=== PATIENT | male | born 1980 | race Caucasian/White ===

== ENCOUNTER 2019-04-12 02:08 | Emergency (ER) | payer OTHER ==
[2019-04-12] MEDS ORDERED: ASPIRIN 81 MG TABLET, CHEWABLE PO ONE (04:01)
[2019-04-12 04:29] LABS: ABSOLUTE BASOPHILS # (AUTO) 0.1 10^3/uL (0.0-0.2); ABSOLUTE EOSINOPHILS # (AUTO) 0.5 10^3/uL (0.0-0.6); ABSOLUTE LYMPHOCYTES (AUTO) 2.4 10^3/uL (0.5-4.7); ABSOLUTE MONOCYTES (AUTO) 0.8 10^3/uL (0.1-1.4); ABSOLUTE NEUT (AUTO) 4.2 10^3/uL (1.7-8.2); BASOPHILS % (AUTO) 1.1 % (0-2); EOSINOPHILS % (AUTO) 6.5 % (0-6); HEMATOCRIT 40.7 % (37.9-51.0); HEMOGLOBIN 13.9 g/dL (13.5-17.0); LYMPHOCYTES % (AUTO) 29.8 % (13-45); MEAN CORPUSCULAR HEMOGLOBIN 29.8 pg (27.0-33.4); MEAN CORPUSCULAR HGB CONC 34.1 g/dL (32.0-36.0); MEAN CORPUSCULAR VOLUME 87 fl (80-97); MONOCYTES % (AUTO) 9.9 % (3-13); PLATELET COUNT 247 10^3/uL (150-450); RED BLOOD COUNT 4.66 10^6/uL (4.35-5.55); RED CELL DISTRIBUTION WIDTH 13.3 % (11.5-14.0); SEGMENTED NEUTROPHILS % (AUTO) 52.7 % (42-78); TOTAL CELLS COUNTED % (AUTO) 100 %
[2019-04-12] MEDS ORDERED: KETOROLAC TROMETHAMINE INJ/PF 30 MG/1 ML SDV IV ONE (04:31)
--- NOTE | 2019-04-12 04:31 | ER Document Report ---
ED General - General Chief Complaint: Chest Pain Stated Complaint: CHEST PAIN Time Seen by Provider: 04/12/19 04:18 TRAVEL OUTSIDE OF THE [place] IN LAST 30 DAYS: No - HPI Notes: 38-year-old male presents with chest pain. Patient describes onset over the last week several days gradually of sharp somewhat pleuritic left anterolateral chest pain that other times is more achy in both sides of his chest. No change in his underlying workout regimen. No direct injury. No fever, chills or sweats. No history or family history of venous thrombi embolism. No family history of primary relatives with early ACS. No use of cocaine. Moderate intensity, gradual onset, nonradiating. Constant, unrelenting for at least 24 hours. - Related Data Allergies/Adverse Reactions: No Known Allergies Allergy (Verified 04/12/19 02:27) Past Medical History - Social History Smoking Status: Never Smoker Frequency of alcohol use: Social Family History: Reviewed & Not Pertinent Patient has suicidal ideation: No Patient has homicidal ideation: No - Medical History Medical History: Negative Review of Systems - Review of Systems Notes: Review of systems as in the history of present illness, otherwise negative x 10 systems. Physical Exam - Vital signs Vitals: Temp Pulse Resp BP Pulse Ox 97.9 F 67 18 143/80 H 100 04/12/19 02:20 04/12/19 02:20 04/12/19 02:20 04/12/19 02:20 04/12/19 02:20 - Notes Notes: General: Well developed . HEENT: Normocephalic, atraumatic. Pupils equal round reactive to light. No JVD. Chest: No trauma. Respiratory: Good air exchange, normal excursion. Cardiac: Regular rhythm. No murmurs or gallops. Abdomen: Soft, benign. Nondistended. Nontender. Back: No asymmetry or gross abnormality. Motor: Grossly normal power and tone. Neurologic: Alert, nonfocal. Cranial nerves II-12 are intact. Sensation intact. Vascular: Well perfused. Normal peripheral pulses. Skin: No petechiae or purpura. Course - Re-evaluation Re-evalutation: 04/12/19 04:30 Well-appearing male with somewhat pleuritic pain, very atypical for ACS. He is very low risk for CAD and heart disease, especially with his prolonged atypical pain for well over 12 hours I think a single negative troponin makes posttest probability of ACS acceptably low. Patient has no significant dyspnea, normal oxygen saturation, no significant risk factors, doubt pulmonary embolism. Consider occult strain, pleurisy, costochondritis, pneumonia or pneumothorax. Plain films are unremarkable. Labs currently pending, reevaluate. Treat with IV Toradol. 04/12/19 05:07 Labs reviewed, CBC normal chemistries unremarkable troponin normal. Chest x-ray unremarkable. Patient is discharged home with prescription for diclofenac, close outpatient follow-up. 04/12/19 05:08 - Vital Signs Vital signs: Temp Pulse Resp BP Pulse Ox 97.9 F 59 L 21 H 140/91 H 98 04/12/19 03:58 04/12/19 03:58 04/12/19 04:10 04/12/19 04:10 04/12/19 04:10 - Laboratory Result Diagrams: 04/12/19 04:15 04/12/19 04:15 Laboratory results interpreted by me: 04/12/19 04/12/19 04:15 04:15 Eos % (Auto) 6.5 H Creatine Kinase 206 H Discharge - Discharge Clinical Impression: Atypical chest pain Condition: Good Disposition: HOME, SELF-CARE Instructions: Chest Pain of Unclear Cause ([facility]) Additional Instructions: See your primary care doctor over the next 24 to 48 hours Prescriptions: Diclofenac Sodium 75 mg PO Q12 7 Days #14 tablet.
[2019-04-12 04:44] LABS: ALBUMIN 4.2 g/dL (3.5-5.0); ALKALINE PHOSPHATASE 54 U/L (38-126); ANION GAP 7 (5-19); ASPARTATE AMINO TRANSFERASE 28 U/L (17-59); BILIRUBIN,DIRECT 0.1 mg/dL (0.0-0.4); BILIRUBIN,TOTAL 0.4 mg/dL (0.2-1.3); BLOOD UREA NITROGEN 18 mg/dL (7-20); CALCIUM 9.5 mg/dL (8.4-10.2); CARBON DIOXIDE 30 mmol/L (22-30); CHLORIDE 103 mmol/L (98-107); CREATINE KINASE 206 U/L (55-170); GLUCOSE 89 mg/dL (75-110); POTASSIUM 4.1 mmol/L (3.6-5.0); TOTAL PROTEIN 6.9 g/dL (6.3-8.2)
[2019-04-12 04:55] LABS: CREATINE KINASE MB 0.98 ng/mL (<4.55)
--- NOTE | 2019-04-12 04:55 | RADIOLOGY REPORT (SQ) ---
CLINICAL HISTORY: chest pain COMPARISON: None. TECHNIQUE: XR CHEST 1 VIEW 04/12/2019 4:02 AM CDT FINDINGS: Cardiac silhouette is normal in size. Lungs are clear without consolidation, atelectasis, mass or edema. There is no pleural effusion. There is no pneumothorax. There are no acute osseous findings. IMPRESSION: Clear lungs.
[2019-04-12 04:56] LABS: TROPONIN I < 0.012 ng/mL
[2019-04-12 05:34] VITALS: BP 134/84
== END 2019-04-12 05:41 | disposition home or self-care (01) ==
LOC: EDBD 02:08 → ER 02:08
DX: R07.89 Other chest pain (principal)
CPT/HCPCS: 99285; 96374; 36415; 82553; 82550; 85025; 80053; 84484; 71045; J1885